=== PATIENT | male | born 1990 | race Hispanic/Latino ===

== ENCOUNTER → 2025-01-02 | Outpatient (CLI) | payer BC, SELFPAY ==
[2025-01-02 22:15] VITALS: PULSE 94; RESP 16
[2025-01-02 22:50] VITALS: PULSE 93; RESP 22
[2025-01-02 23:20] VITALS: PULSE 81; RESP 18
[2025-01-02 23:30] VITALS: PULSE 80; RESP 20
[2025-01-03] VITALS (21 sets, daily range): PULSE 70–87; RESP 12–33
== END | disposition home or self-care (01) ==
LOC: SLP 10:50
PROVIDERS: ATTEND Nurse Practitioner Family
DX: G47.33 Obstructive sleep apnea (adult) (pediatric) (principal); G47.19 Other hypersomnia
CPT/HCPCS: 95811